=== PATIENT | female | born 1955 | race Caucasian/White ===

== ENCOUNTER → 2018-04-03 | Outpatient (CLI) | payer OTHER ==
[2018-04-03 08:27] LABS: BASOPHILS % (AUTO) 0.8 % (0.0-5.0); EOSINOPHILS % (AUTO) 4.3 % (0.0-8.0); HEMATOCRIT 39.3 % (36-48); MEAN CORPUSCULAR HEMOGLOBIN 28.8 pg (27.0-33.0); MEAN CORPUSCULAR HGB CONC 33.3 g/dL (32.0-36.0); MEAN CORPUSCULAR VOLUME 86.6 fL (79-99); MONOCYTES % (AUTO) 5.7 % (3.0-13.0); NEUTROPHILS % (AUTO) 36.2 % (40.0-77.0); NUCLEATED RED BLOOD CELLS 0.1 % (0.0-0.19); PLATELET COUNT (AUTO) 232 K/uL (130-400); RED BLOOD CELL COUNT(AUTO) 4.54 MIL/uL (4.00-5.50); RED CELL DISTRIBUTION WIDTH 13.2 % (11.0-15.5)
[2018-04-03 08:51] LABS: BILIRUBIN,TOTAL 0.3 mg/dL (0.2-1.0); CREATININE 1.1 mg/dL (0.5-1.5); POTASSIUM 4.1 mmol/L (3.5-5.1); THYROID STIMULATING HORMONE 2.05 uIU/mL (0.36-3.74); TOTAL PROTEIN, SERUM 7.5 g/dL (6.0-8.3)
== END | disposition home or self-care (01) ==
LOC: LAB 07:52
DX: Z13.220 Encounter for screening for lipoid disorders (principal); Z13.1 Encounter for screening for diabetes mellitus; D50.9 Iron deficiency anemia, unspecified
CPT/HCPCS: 36415; 80053; 80061; 84443; 85025

== ENCOUNTER → 2021-12-20 | Outpatient (CLI) | payer OTHER ==
[~2021-12-20] MED LIST: CETI10TA57 PO; FLUT16H NS
== END | disposition home or self-care (01) ==
LOC: ICE 09:48
PROVIDERS: ATTEND Hospitalist
DX: U07.1 COVID-19 (principal)
CPT/HCPCS: 87426

== ENCOUNTER → 2022-12-27 | Outpatient (CLI) | payer OTHER | END | disposition home or self-care (01) | LOC: RAH 13:24 | PROVIDERS: ATTEND Internal Medicine Critical Care Medicine | DX: M19.032 Primary osteoarthritis, left wrist (principal); M25.532 Pain in left wrist | CPT/HCPCS: 73110 ==

== ENCOUNTER → 2023-01-10 | Outpatient (CLI) | payer OTHER | END | disposition home or self-care (01) | LOC: RAH 09:16 | PROVIDERS: ATTEND Internal Medicine Critical Care Medicine | DX: Z12.31 Encounter for screening mammogram for malignant neoplasm of breast (principal); Z78.0 Asymptomatic menopausal state; M81.0 Age-related osteoporosis without current pathological fracture | CPT/HCPCS: 77067; 77080 ==

== ENCOUNTER → 2023-01-18 | Outpatient (CLI) | payer OTHER | END | disposition home or self-care (01) | LOC: RAH 13:08 | PROVIDERS: ATTEND Internal Medicine Critical Care Medicine | DX: M19.032 Primary osteoarthritis, left wrist (principal); M25.532 Pain in left wrist; R60.9 Edema, unspecified | CPT/HCPCS: 73221 ==

== ENCOUNTER → 2024-05-09 | Outpatient (CLI) | payer OTHER ==
--- NOTE | 2024-05-09 09:26 | HMCIMG ---
US RENAL SONOGRAM HISTORY: Flank pain COMPARISON: None TECHNIQUE: Renal and bladder ultrasound study was performed. FINDINGS: The right kidney measures 9.3 x 3.6 x 4.7 cm. The left kidney measures 9.2 x 4.3 x 4.2 cm. No evidence of hydronephrosis is seen of either kidney. Both kidneys are seen. Bladder is moderately distended. There is right renal pelvis fullness. There is right renal stone measuring a millimeter. IMPRESSION: 1. No hydronephrosis is seen. Right renal stone measuring 3 mm.
== END | disposition home or self-care (01) ==
LOC: RAH 08:16
PROVIDERS: ATTEND Internal Medicine Critical Care Medicine
DX: N20.0 Calculus of kidney (principal); R10.9 Unspecified abdominal pain
CPT/HCPCS: 76770

== ENCOUNTER → 2024-06-20 | Outpatient (CLI) | payer MEDICARE, OTHER ==
--- NOTE | 2024-06-20 14:39 | HMCIMG ---
CT ABD/PEL WO CON RENAL/APPY REASON: KIDNEY STONES COMPARISON: None. FINDINGS: Lung bases are clear. There are no focal liver lesions. There is a 7 mm calcification left kidney, probably a dystrophic calcification in the parenchyma. There is a 3 mm nonobstructing stone lower pole calyx right kidney. Kidneys appear otherwise normal with no mass or hydronephrosis.. Spleen and pancreas appear unremarkable. There are stones in an otherwise normal-appearing gallbladder. There is large amount solid fecal material in the colon consistent with constipation. There is no evidence of fecal impaction. Small bowel loops do not appear distended. The appendix was not separately identified. There is no evidence of free fluid or intraperitoneal air. There are no focal fluid collections. Aorta and retroperitoneum appear normal as do pelvic soft tissue structures. The anterior abdominal wall is intact. Osseous structures appear unremarkable. IMPRESSION: 1. Cholelithiasis without evidence of acute cholecystitis. 2. Small stone right kidney, there is a 7 mm dystrophic obscuration left kidney, kidneys appear otherwise normal as well. 3. Constipation, there is no evidence of bowel obstruction. CT was performed with one or more following dose reduction techniques: automated exposure control, adjustment of the mA and kv according to patient's size, or use of a iterative reconstruction technique.
== END | disposition home or self-care (01) ==
LOC: RAH 13:18
PROVIDERS: ATTEND Internal Medicine Critical Care Medicine
DX: K80.20 Calculus of gallbladder without cholecystitis without obstruction (principal); N20.0 Calculus of kidney; N28.89 Other specified disorders of kidney and ureter; K59.09 Other constipation; K56.2 Volvulus
CPT/HCPCS: 74176

== ENCOUNTER → 2025-03-11 | Outpatient (CLI) | payer MEDICARE ==
--- NOTE | 2025-03-12 15:35 | HMCIMG ---
DIGITAL BILATERAL SCREENING MAMMOGRAM WITH TOMOSYNTHESIS Technique: The digital mammographic examination of both breasts in craniocaudal and mediolateral oblique views along with CAD was obtained. Tomosynthesis of both breasts was obtained. History: This is a 69 years year-old female 0, para 0 Ab 0 for 3D screening mammogram. Patient has no family history of breast cancer. Patient has no complaint Reference:Prior mammogram from 01/25/2024 01/10/2023 are available. Prior breast sonogram from 09/21/2016 of both breasts are available.. Breast composition: Breast composition D: The breasts are extremely dense, which lowers the sensitivity of mammography. Finding: The digital mammographic examination of both breasts in craniocaudal and mediolateral oblique view along with CAD demonstrates both breasts to BE dense. There are solitary benign macrocalcification.. There is no evidence of any dendritic mass, cluster microcalcification or architectural distortion. The Tomosynthesis demonstrates no lesion seen. The retromammary fat appears to be normal. IMPRESSION: NO RADIOGRAPHIC EVIDENCE OF MALIGNANT CHANGES. WE WOULD RECOMMEND ANNUAL FOLLOW UP WITH TOMOSYNTHESIS UNLESS OTHERWISE CLINICALLY INDICATED. Due to dense breast I would recommend annual bilateral breast sonogram. FINAL ASSESSMENT: ACR: BI-RAD- 2. Benign: Also a negative assessment; finding(s) benign abnormalities. Management: Routine mammography screening. Likelihood of Cancer: Essentially 0% likelihood of malignancy. NOTE: IF A WORK-UP OF THIS PATIENT LEADS TO A BIOPSY, PLEASE FORWARD A COPY OF THE PATHOLOGY REPORT TO OUR OFFICE REQUIRED BY [facility] [employer] FEBRUARY 19, 1994. A NEGATIVE MAMMOGRAM SHOULD NOT PRECLUDE BIOPSY OF A CLINICALLY PALPABLE SUSPICIOUS MASS, 10% OF BREAST CANCERS ARE MAMMOGRAPHICALLY OCCULT. THIS MAMMOGRAPHY FACILITY IS FULLY ACCREDITED BY THE FOOD AND DRUG ADMINISTRATION (FDA). THANK YOU FOR THIS REFERRAL.
== END | disposition home or self-care (01) ==
LOC: RAH 13:20
PROVIDERS: ATTEND Internal Medicine Critical Care Medicine
DX: Z12.31 Encounter for screening mammogram for malignant neoplasm of breast (principal); R92.343 Mammographic extreme density, bilateral breasts
CPT/HCPCS: 77063; 77067

== ENCOUNTER → 2025-03-13 | Outpatient (CLI) | payer MEDICARE ==
--- NOTE | 2025-03-13 14:17 | HMCIMG ---
CLINICAL INDICATION: Age-related osteoporosis without current pathological fracture COMPARISON: Prior study from 01/25/2024 is available. TECHNIQUE: Bone densitometry is performed of the lumbar spine and left hip. FINDINGS: Total BMD of lumbar spine is 0.809 g/cm2 with a T-score of -2.2 and Z-score is 0.0. Total BMD of left hip is 0.684 g/cm2 with a T-score of -2.1 and Z-score is -0.6. FRAX SCORE: The 10 year fracture risk for a major osteoporotic fracture and hip fracture not reported because T score at or below -2.5 IMPRESSION: 1. Osteoporosis of the left hip which is unchanged from prior study. 2. Osteopenia of the lumbar spine which is improved as compared to prior study. 3. I would recommend follow-up in 13 months. World Health Organization criteria for BMD interpretation classify patients as Normal (T-score at or above -1.0), Osteopenic (T-score between -1.0 and -2.5), or Osteoporotic (T-score at or below -2.5). FRAX SCORE: A. All treatment decisions require clinical judgment and consideration of individual patient factors, including patient preferences, comorbidities, previous drug use, risk factors not captured in the FRAX model (e.g., frailty, falls, vitamin D deficiency, increased bone turnover, interval significant decline in bone density) and possible [id number]-estimation of fracture risk by FRAX. B. In addition, the NOF Guide recommends that FDA-approved medical therapies be considered in postmenopausal women and men age greater than or equal to 50 years with a: i. Hip or vertebral (clinical or morphometric) fracture. ii. T-score of less than or equal to -2.5 at the spine or hip. iii. Ten-year fracture probability by FRAX of greater than or equal to 3% for hip fracture of greater than or equal to 20% for major osteoporotic fracture.
== END | disposition home or self-care (01) ==
LOC: RAH 13:30
PROVIDERS: ATTEND Internal Medicine Critical Care Medicine
DX: M81.0 Age-related osteoporosis without current pathological fracture (principal); M85.89 Other specified disorders of bone density and structure, multiple sites
CPT/HCPCS: 77080